=== PATIENT | female | born 1970 | race African-American/Black ===

== ENCOUNTER 2024-05-04 12:03 | Emergency (ER) | payer OTHER ==
[2024-05-04 12:12] VITALS: BP 162/88; PULSE 108; RESP 20; TEMP 98.4; BMI 28.1
[2024-05-04] MEDS ORDERED: METHOCARBAMOL 500 MG TABLET ONE (13:15)
[2024-05-04] MEDS ORDERED: predniSONE 20 MG TABLET (UD) ONE (13:16)
[2024-05-04] MEDS ORDERED: ACETAMINOPHEN 500 MG TABLET (FP) ONE (13:16)
[2024-05-04] MEDS: METHOCARBAMOL 500 MG TABLET PO ONE (13:28)
[2024-05-04] MEDS: predniSONE 20 MG TABLET (UD) PO ONE (13:28)
[2024-05-04] MEDS: ACETAMINOPHEN 500 MG TABLET (FP) PO ONE (13:28)
[2024-05-04 14:56] LABS: HCV DIAGNOSTIC IN-HOUSE W/RFLX NON-REACTIVE (NONREACTIVE); HIV INTERPRETATION NEGATIVE (NEGATIVE)
== END 2024-05-04 14:56 | disposition home or self-care (01) ==
LOC: JERFT 12:03
DX: M75.22 Bicipital tendinitis, left shoulder (principal); M79.602 Pain in left arm
CPT/HCPCS: 36415; 73030-TC-LT-FY; 86803; 87389; 99284-25